=== PATIENT | female | born 1980 | race Caucasian/White ===

== ENCOUNTER → 2017-07-30 | Outpatient (CLI) | payer OTHER ==
[~2017-07-30] MED LIST: ACHYD1T PO; BIRTH CONTROL PILL PO; CEPH-38 PO; DCS100C PO; FRS325T PO; HYDR-2890 PO; HYDR-3720 PO; IBP800T PO; IOHEXOL 350 MG/ML 100 ML (OMNIPAQUE 350) VIAL IV ONE; NS 250 ML (IVPB) BAG IV ONE; ONDAN4ODT SL; OXYC-12 PO
--- NOTE | 2017-07-30 12:30 | Diagnostic Imaging Report ---
PROCEDURE: CT abdomen and pelvis with contrast, rule out appendicitis. TECHNIQUE: Multiple contiguous axial images were obtained through the abdomen and pelvis after the administration of intravenous contrast. INDICATION: Fever. Lower back pain with radiation to right lower abdominal quadrant. Tender to palpation. Comparison: 03/02/2012 FINDINGS: Included portions of the lung bases are clear. CT abdomen: Normal appendix is identified. Small bowel loops are nondistended. There are wedge-shaped areas of irregular hypoenhancement involving the right kidney. Most conspicuous area is seen within the anterior margins of the inferior pole (image 56, series 2). Left kidney has a normal enhancing appearance. No renal or ureteral calculi are seen on either side. There is slight asymmetric prominence of the right renal pelvis. Ureters are however decompressed. The adrenal glands, pancreas, and liver have a normal CT appearance. There is mild splenomegaly. Spleen measures approximate 14.2 cm in AP dimension. No focal splenic lesions are identified. There is no loculated fluid collection, free fluid, nor free air within the abdomen. No abnormal mesenteric or retroperitonea adenopathy is seen. Bony structures show no acute abnormalities. CT pelvis: The urinary bladder is grossly unremarkable. There is no loculated fluid collection, free fluid, nor free air within the pelvis. Multiple bilateral ovarian follicles are present. No abnormal adenopathy is identified. Bony structures show no acute abnormalities. Impression: 1. Subtle areas of irregular hypoenhancement of the right kidney. Appearance is suggestive of pyelonephritis. Slight asymmetric enlargement of the right renal pelvis may be on the basis of recent passage of calculus. No renal or ureteral calculi are identified on this exam. 2. Normal-appearing appendix. Report was faxed/called to Serina/medical office rep of Dr. Olson by michael at 12:25 p.m. Dictated by: Dictated on workstation # [id number]
== END ==
LOC: RAD 10:36
PROVIDERS: ATTEND Obstetrics & Gynecology
DX: R10.31 Right lower quadrant pain (principal); M54.5 Low back pain; R50.9 Fever, unspecified; R10.819 Abdominal tenderness, unspecified site
CPT/HCPCS: 74177

== ENCOUNTER → 2018-03-11 | Outpatient (CLI) | payer OTHER ==
[~2018-03-11] MED LIST changes: -IOHEXOL 350 MG/ML 100 ML (OMNIPAQUE 350) VIAL IV ONE; -NS 250 ML (IVPB) BAG IV ONE
--- NOTE | 2018-03-12 10:30 | Diagnostic Imaging Report ---
Indication: Routine screening. No prior mammograms are available for comparison. This is a baseline study. Scattered fibroglandular densities are identified bilaterally. No mass or malignant-appearing microcalcifications are seen. Axillae are unremarkable. Impression: BI-RADS category 1 No mammographic features suspicious for malignancy are identified. ACR BI-RADS Category 1: Negative. Result letter will be mailed to the patient. Note: At least 10% of breast cancer is not imaged by mammography. Dictated by: Dictated on workstation # [id number]
== END ==
LOC: RAD 15:25
PROVIDERS: ATTEND Obstetrics & Gynecology
DX: Z12.31 Encounter for screening mammogram for malignant neoplasm of breast (principal)
CPT/HCPCS: 77067

== ENCOUNTER 2021-07-06 10:31 | Day surgery (SDC) | payer OTHER ==
[2021-07-06] VITALS (10 sets, daily range): BP systolic 109–129; BP diastolic 64–82
[~2021-07-06] VITALS: Ht 172 cm; Wt 90.8 kg
[2021-07-06 11:08] LABS: BASOPHILS % (AUTO) 1 % (0-10); EOSINOPHILS # (AUTO) 0.1 10^3/uL (0.0-0.3); EOSINOPHILS % (AUTO) 2 % (0-10); HEMATOCRIT 40 % (35-52); HEMOGLOBIN 13.4 g/dL (11.5-16.0); LYMPHOCYTES # (AUTO) 1.5 10^3/uL (1.0-4.0); LYMPHOCYTES % (AUTO) 24 % (12-44); MEAN CORPUSCULAR HEMOGLOBIN 29 pg (25-34); MEAN CORPUSCULAR HGB CONC 33 g/dL (32-36); MEAN CORPUSCULAR VOLUME 87 fL (80-99); MEAN PLATELET VOLUME 11.6 fL (9.0-12.2); MONOCYTES # (AUTO) 0.5 10^3/uL (0.0-1.0); MONOCYTES % (AUTO) 9 % (0-12); NEUTROPHILS # (AUTO) 3.8 10^3/uL (1.8-7.8); NEUTROPHILS % (AUTO) 64 % (42-75); PLATELET COUNT 169 10^3/uL (130-400)
[2021-07-06] MEDS ORDERED: ceFAZolin INJECTION 1,000 MG ONE (11:11)
[2021-07-06] MEDS ORDERED: ONDANSETRON 4 MG/2 ML (SDV) Z0FRAN IV ONE (11:30)
[2021-07-06] MEDS ORDERED: FAMOTIDINE 20MG/2ML IV (PEPCID) IV ONE (11:30)
[2021-07-06] MEDS ORDERED: fentaNYL INJ 100 MCG/2 ML AMP ONE (11:39)
[2021-07-06] MEDS ORDERED: proPOfol 200 MG/20 ML (DIPRIVAN) VIAL IV ONE (11:39)
[2021-07-06] MEDS ORDERED: MIDAZOLAM 2 MG/2 ML (VERSED) VIAL ONE (11:39)
[2021-07-06] MEDS ORDERED: LIDOCAINE PF 2% 5 ML (XYLOCAINE) VIAL ONE (11:39)
[2021-07-06] MEDS ORDERED: PROPOFOL INJECTION 50 ML IV ONE (11:39)
[2021-07-06] MEDS ORDERED: ONDANSETRON 4 MG/2 ML (SDV) Z0FRAN ONE (11:39)
[2021-07-06] MEDS ORDERED: ceFAZolin INJECTION 1,000 MG VIAL IV ONE (11:45)
--- NOTE | 2021-07-06 12:54 | Progress Note-Pre Operative ---
Pre-Operative Progress Note H&P Reviewed The H&P was reviewed, patient examined and no changes noted. Date Seen by Provider: July 06, 2021 Time Seen by Provider: 12:53 Date H&P Reviewed: July 06, 2021 Time H&P Reviewed: 12:53 Pre-Operative Diagnosis: Blighted ovum/missed AB NENITA PRADO MD July 06, 2021 12:54
--- NOTE | 2021-07-06 12:54 | Progress Note-Post Operative ---
Post-Operative Progess Note Surgeon (s)/Decal Maker (s) Surgeon NENITA PRADO MD Decal Maker: None Pre-Operative Diagnosis Blighted ovum/missed AB Post-Operative Diagnosis Same Procedure & Operative Findings Date of Procedure 07/06/21 Procedure Performed/Findings D&C for first trimester missed AB/blighted ovum Anesthesia Type General Estimated Blood Loss Estimated blood loss (mL): 100cc Specimens/Packing Specimens Removed Uterine contents/products of conception NENITA PRADO MD July 06, 2021 12:54
--- NOTE | 2021-07-06 12:57 | Discharge Inst-Surgical ---
Discharge Inst-Surgical Depart Medication/Instructions New, Converted or Re-Newed RX: Other Consults/Follow Up Orders & Referrals Follow Up Appt: Call to make follow up appt. for patient in 2 weeks. Activity: Rest for 24 hours, than as tolerated. Patient you may use [id number] Motrin/Advil/Aleve Diet: As tolerated may shower or tub bathe as desired. No driving for 24 hours, no alcoholic beverages for 24 hours, and nothing per vagina (no tampons, douching, or intercoarse) for 2 weeks. Patient to return to the clinic as soon as possible for: Temperature greater than 101F, Severe Pain, Foul discharge from incision or vagina, Excessive Bleeding (more than a period). Activity Activity as Tolerated: No Diet Discharge Diet: No Restrictions NENITA PRADO MD July 06, 2021 12:57
[2021-07-06] MEDS ORDERED: fentaNYL INJ 100 MCG/2 ML AMP IVP PRN (13:00)
[2021-07-06] MEDS ORDERED: oxyCODONE/APAP 5/325MG (PERCOCET 5) TABLET PO PRN (13:00)
[2021-07-06] MEDS ORDERED: KETOROLAC 30 MG/ML VIAL IVP ONE (13:00)
[2021-07-06] MEDS ORDERED: D5 LR IV SOLUTION 1,000 ML IV SCH (13:00)
[2021-07-06] MEDS ORDERED: ONDANSETRON 4 MG/2 ML (SDV) Z0FRAN IVP PRN ×2 (13:00→13:45)
[2021-07-06] MEDS ORDERED: KETOROLAC 30 MG/ML VIAL ONE (13:22)
[2021-07-06] MEDS ORDERED: morphine INJ 10 MG/ML 1ML (SYR OR VIAL) IVP ONE (13:45)
--- NOTE | 2021-07-06 14:53 | Anesthesia-General Post-Op ---
General Patient Condition Mental Status/LOC: Same as Preop Cardiovascular: Satisfactory Nausea/Vomiting: Absent Respiratory: Satisfactory Pain: Controlled Complications: Absent Post Op Complications Complications None Follow Up Care/Instructions Patient Instructions None needed. Anesthesia/Patient Condition Patient Condition Patient is doing well, no complaints, stable vital signs, no apparent adverse anesthesia problems. No complications reported per nursing. KEO HERNANDEZ DO July 06, 2021 14:53
--- NOTE | 2021-07-06 23:50 | OPERATIVE REPORT ---
DATE OF SERVICE: 07/06/2021 PREOPERATIVE DIAGNOSES: A 10-week missed /blighted ovum. POSTOPERATIVE DIAGNOSIS: A 10-week missed /blighted ovum. OPERATIVE PROCEDURE: D and C for first trimester missed . OPERATIVE DESCRIPTION: With the patient in the supine position under satisfactory general anesthesia, she was repositioned in dorsal lithotomy position in the Arie stirrups and prepped and draped in the usual fashion for vaginal surgery. Nguyen catheter was used to drain the urinary bladder. Weighted speculum placed in posterior fornix of vagina, cervix exposed and grasped anteriorly with single tooth tenaculum. Uterus was sounded to 12.5 cm with uterine sound. The cervix was then serially dilated with Fran dilators to #20 Fran and then a Benita dilator was the last step in dilation. A #10 Curved suction curette was introduced and copious amounts of blood clot, amniotic fluid and placental appearing tissue and debris were suction curettaged from the uterine cavity. The suction curette was removed. The endometrial cavity was sharply curettaged in all 4 quadrants to good uterine cry. The curved suction curette was reintroduced and all blood clot and debris evacuated from the uterus. The suction curette was removed as was the tenaculum. There was a fairly brisk bleeding from one of the puncture sites from the tenaculum. Silver nitrate failed to control that bleeding, so a bqgfvp-vj-[id number] suture of 2-0 Vicryl was placed to affect hemostasis at the cervix. Now with sponge, needle counts correct, hemostasis assured. BLOOD LOSS: Minimal. The procedure was complete and terminated. The patient tolerated the procedure well. She was uneventfully awakened from her general anesthesia and transferred to recovery room in stable condition with plans for discharge home PAR. Job ID: [id number] DocumentID: [id number] Dictated Date: 07/06/2021 13:21:10 Anchor Operator Date: 07/06/2021 23:49:58 Dictated By: NENITA PRADO MD
== END 2021-07-06 15:06 | disposition home or self-care (01) ==
LOC: SDC 10:31
PROVIDERS: ATTEND Obstetrics & Gynecology
DX: O02.0 Blighted ovum and nonhydatidiform mole (principal); Z3A.10 10 weeks gestation of pregnancy; N83.202 Unspecified ovarian cyst, left side
CPT/HCPCS: 36415; 85025; 87081

== ENCOUNTER 2021-11-18 01:02 | Emergency (ER) | payer OTHER ==
[~2021-11-18] VITALS: Ht 177 cm; Wt 88.4 kg
--- NOTE | 2021-11-18 01:32 | ED GU-Female ---
General Chief Complaint: OB < 20 WEEKS Stated Complaint: 10 WK , BLEEDING Nursing Triage Note: PT PRESENTS TO ED VIA POV ACCOMPANIED BY WITH COMPLAINTS OF VAGINAL BLEEDING STARTING AROUND 2330 11/17/21. PT REPORTS SHE IS APOX 10 1/2 WEEKS . Source: patient Exam Limitations: no limitations (HERLINDA FRASER MD) History of Present Illness Date Seen by Provider: Nov 18, 2021 (HERLINDA FRASER MD) Time Seen by Provider: 01:40 Initial Comments Ms. Faust is a 41 y/o female who presents with concern of vaginal bleeding. Patient reports she is with a gestational age of 10 weeks 4 days based on a LMP of 09/05/2021. She states she has had an ultrasound to confirm viability and dating. Earlier this evening after intercourse the patient experienced an episode of vaginal bleeding. She states the bleeding was heavy and contacted Dr. Marin who directed her to the ED. Patient states the bleeding was bright red. Prior to arriving to the ED, patient states she showered and put on a new pad and has not noticed any bleeding since. Denies abdominal cramping. She states her blood type is A+. Timing/Duration: this evening, gone now (patient reports she is no longer bleeding) Severity/Quality: mild Location: vaginal Radiation: none Activities at Onset: sexual activity Prior Genitourinary Problems: none Associated Symptoms: denies symptoms (GARCÍA PEÑA) Allergies and Home Medications Allergies Coded Allergies: azithromycin (Verified Allergy, Unknown, 01/14/07) Patient Home Medication List Home Medication List Reviewed: Yes (HERLINDA FRASER MD) Hydrocodone Bit/Acetaminophen (Hydrocodone-Apap 10-325 Tablet) 1 Each Tablet, 1- 2 TAB PO Q3H PRN for PAIN Prescribed by: NENITA ZIEGLER on 07/30/13 2039 Review of Systems Review of Systems Constitutional: no symptoms reported EENTM: no symptoms reported Respiratory: no symptoms reported Cardiovascular: no symptoms reported Gastrointestinal: no symptoms reported Genitourinary: no symptoms reported : Yes Expected Date of Delivery: Jun 12, 2022 LMP: Sep 05, 2021 Musculoskeletal: no symptoms reported Skin: no symptoms reported Psychiatric/Neurological: No Symptoms Reported Endocrine: No Symptoms Reported Hematologic/Lymphatic: No Symptoms Reported (GARÍCA PEÑA) All Other Systemes Reviewed Negative Unless Noted: Yes (GARCÍA PEÑA) Past Tfhvzkx-Vracfj-Updxta Hx Patient Social History Tobacco Use?: No Substance use?: No Alcohol Use?: No Pt feels they are or have been: No (HERLINDA FRASER MD) Immunizations Up To Date Tetanus Booster (TDap): Unknown First/Initial COVID19 Vaccinat: yes Second COVID19 Vaccination Primo: yes (HERLINDA FRASER MD) Past Medical History Surgery/Hospitalization HX: sx: [facility] x 3, thyroidectomy, gallbladder Surgeries: Yes (THYROIDECTOMY/ X3) Thyroidectomy (partial) Respiratory: No Currently Using CPAP: No Currently Using BIPAP: No Cardiac: No Neurological: No Last Menstrual Period: Sep 05, 2021 Reproductive Disorders: No Female Reproductive Disorders: Endometriosis, Polycystic Ovarian Dis Sexually Transmitted Disease: No HIV/AIDS: No Genitourinary: No Gastrointestinal: No Musculoskeletal: No Endocrine: Yes Hypothyroidsim HEENT: No Cancer: No Did You Recieve Any Treatments: No Psychosocial: No Integumentary: No Blood Disorders: No (HERLINDA FRASER MD) Surgeries: Yes Gallbladder, Thyroidectomy (partial) Respiratory: No Cardiac: No Neurological: No : Yes Expected Date of Delivery: Jun 12, 2022 Gastrointestinal: No Musculoskeletal: No Endocrine: No HEENT: No Cancer: No Psychosocial: No Integumentary: No (GARCAÍ PEÑA) Physical Exam Vital Signs Vital Signs - First Documented 11/18/21 01:17 Temp 36.4 Pulse 80 Resp 18 B/P (MAP) 156/91 (112) Pulse Ox 98 (GARCÍA PEÑA) Vital Signs Capillary Refill : Less Than 3 Seconds (HERLINDA FRASER MD) Height, Weight, BMI Height: 5'9.00" Weight: 176lbs. oz. [id number]; 28.00 BMI Method: HEENT: normal ENT inspection Neck: normal inspection Cardiovascular: regular rate, rhythm, no edema Respiratory: normal breath sounds, no respiratory distress Gastrointestinal: non tender, soft; No distended; other (Appropriately gravid for gestational age) Back: normal inspection Extremities: normal inspection, no pedal edema Neurologic/Psychiatric: air defence officer II-XII nml as tested, no motor/sensory deficits, alert, normal mood/affect, oriented x 3 Skin: normal color, warm/dry (HERLINDA FRASER MD) General Appearance: WD/WN, no apparent distress Gastrointestinal: non tender, soft Physical exam performed by Dr. Fraser, dictated to me. heart rate 160s with doppler. (GARCÍA PEÑA) Progress/Results/Core Measures Suspected Sepsis SIRS Temperature: Pulse: 80 Respiratory Rate: 18 Blood Pressure 156 /91 Mean: 112 (HERLINDA FRASER MD) Results/Orders Vital Signs/I&O 11/18/21 11/18/21 01:17 01:37 Temp 36.4 36.4 Pulse 80 80 Resp 18 18 B/P (MAP) 156/91 (112) 156/91 Pulse Ox 98 98 (GARCÍA PEÑA) Vital Signs/I&O Capillary Refill : Less Than 3 Seconds (HERLINDA FRASER MD) Blood Pressure Mean: 112 Progress Note : Progress Note heart tones were reassuring in the 160s. Since patient was not having any pain or cramping and bleeding had stopped, no further evaluation or treatment is necessary in the emergency room. Patient reports a plus blood type so RhoGAM injection is also not necessary. See discharge instructions for further discussion. Case was discussed with Dr. PRADO. (HERLINDA FRASER MD) Departure Impression Primary Impression: Vaginal bleeding during Disposition: 01 HOME, SELF-CARE Condition: Stable Departure-Patient Inst. Decision time for Depature: 01:31 (HERLINDA FRASER MD) Referrals: NENITA PRADO MD (PCP) Primary Care Physician AMADO SALINAS MD (Family) Primary Care Physician Patient Instructions: Bleeding in Early ED Add. Discharge Instructions: Your heart tones were reassuring in the 160s. Observe vaginal rest (nothing in the vagina) until you are cleared by Dr. PRADO. Normal daily activities may be continued, but avoid strenuous activities. Keep your appointment with Dr. PRADO on Friday. Return to care if you develop worsening symptoms including escalating bleeding, worsening pain, cramping, fever, etc. Call with questions or concerns. All discharge instructions reviewed with patient and/or family. Voiced understanding. Medical Student Attestation and Attending Note: I have personally interviewed and examined this patient along with Jaja Peña, MS 4. I have reviewed student documentation including history, physical, and assessments. I agree with the documentation except where otherwise noted. (HERLINDA FRASER MD) Copy Copies To 1: NENITA PRADO MD, JOSHUA T MD Nov 18, 2021 01:32 GARCÍA PEÑA Nov 18, 2021 03:20
[2021-11-18 01:37] VITALS: BP 156/91
== END 2021-11-18 01:37 | disposition home or self-care (01) ==
LOC: EDUNIT# 01:02 → ER 01:05
DX: O20.9 Hemorrhage in early pregnancy, unspecified (principal); Z3A.10 10 weeks gestation of pregnancy